=== PATIENT | female | born 1970 | race Caucasian/White ===

== ENCOUNTER 2018-04-26 05:03 | Emergency (ER) | payer BC ==
[2018-04-26] MEDS: SOD CHLORIDE 0.9% 1,000 ML IV ×2 (05:59→09:52)
[2018-04-26] MEDS: morphine 4 MG/ML VIAL IV (05:59)
[2018-04-26] MEDS: ONDANSETRON 4 MG INJ IV (05:59)
[2018-04-26 06:58] LABS: ADD MAN DIFF? NO
[2018-04-26] MEDS: LORAZEPAM 2 MG INJ IV (07:08)
[2018-04-26 07:11] LABS: ABNORMAL IP MESSAGE 1; BASOPHILS % 0.9 % (0.0-2.0); EOSINOPHILS # 0.1 10^3/ul (0.0-0.5); EOSINOPHILS % 2.9 % (0.0-7.0); HEMATOCRIT 34.5 % (37.0-47.0); HEMOGLOBIN 10.3 g/dl (12.0-16.0); LYMPHOCYTES # 1.5 10^3/ul (0.8-2.9); LYMPHOCYTES % 34.4 % (15.0-51.0); MEAN CORPUSCULAR HEMOGLOBIN 23.3 pg (29.0-33.0); MEAN CORPUSCULAR HGB CONC 29.9 g/dl (32.0-37.0); MEAN CORPUSCULAR VOLUME 77.9 fl (82.0-101.0); MEAN PLATELET VOLUME 11.6 fl (7.4-10.4); MONOCYTE # 0.5 10^3/ul (0.3-0.9); MONOCYTES % 10.7 % (0.0-11.0); NEUTROPHIL # 2.3 10^3/ul (1.6-7.5); NEUTROPHILS % 50.9 % (39.0-77.0); PLATELET COUNT 176 10^3/UL (140-415); RED BLOOD COUNT 4.43 10^6/ul (4.20-5.40); RED CELL DISTRIBUTION WIDTH 16.8 % (11.5-14.5)
[2018-04-26 07:11] LABS: WHITE BLOOD COUNT 4.5 10^3/ul (4.8-10.8)
[2018-04-26 07:29] LABS: POSITIVE DIFF @See below
[2018-04-26 07:30] LABS: ALANINE AMINOTRANSFERASE 68 IU/L (13-69); ALBUMIN 4.2 g/dl (3.3-4.9); ALBUMIN/GLOBULIN RATIO 1.55; ALKALINE PHOSPHATASE 74 IU/L (42-121); AMYLASE 61 U/L (11-123); ANION GAP 8 (5-13); ASPARTATE AMINO TRANSFERASE 71 IU/L (15-46); BILIRUBIN,INDIRECT 0.1 mg/dl (0-1.1); BILIRUBIN,TOTAL 0.1 mg/dl (0.2-1.3); BLOOD UREA NITROGEN 8 mg/dl (7-20); CALCIUM 8.5 mg/dl (8.4-10.2); CARBON DIOXIDE 24 mmol/L (21-31); CHLORIDE 109 mmol/L (97-110); CREATININE 0.56 mg/dl (0.44-1.00); Estimated GFR > 60 mL/min (>60); GLUCOSE 115 mg/dl (70-220); INR 0.89; LIPASE 70 U/L (23-300); POTASSIUM 3.8 mmol/L (3.5-5.1); PROTIME 12.1 Sec (11.9-14.9); PT RATIO 0.9; SODIUM 141 mmol/L (135-144); TOTAL PROTEIN 6.9 g/dl (6.1-8.1)
[2018-04-26 07:42] LABS: TROPONIN-I < 0.012 ng/ml (0.000-0.120)
== END 2018-04-26 11:01 | disposition home or self-care (01) ==
LOC: E/R 05:03
DX: M54.12 Radiculopathy, cervical region (principal); R53.1 Weakness; M79.601 Pain in right arm
CPT/HCPCS: 70450; 72125; 80053; 82150; 83690; 84484; 84703; 85025; 85610; 85730; 93005; 96374; 96375; 99285-25

== ENCOUNTER 2018-07-03 08:04 | Emergency (ER) | payer BC ==
[2018-07-03 08:36] LABS: URINE PH (Dip) POC 5.5 (5.0-8.5)
[2018-07-03 08:36] LABS: URINE BLOOD (Dip) POC 3+ (NEGATIVE); URINE GLUCOSE (Dip) POC Negative (NEGATIVE); URINE KETONES (Dip) POC Negative (NEGATIVE); URINE LEUKOCYTE EST (Dip) POC Negative (NEGATIVE); URINE NITRITE (Dip) POC Negative (NEGATIVE); URINE TOTAL PROTEIN POC 2+ (NEGATIVE)
[2018-07-03] MEDS: MECLIZINE 12.5 MG TAB PO (08:41)
[2018-07-03] MEDS: ACETAMINOPHEN 325 MG TAB PO (08:41)
== END 2018-07-03 09:15 | disposition home or self-care (01) ==
LOC: E/R 08:04
DX: R42 Dizziness and giddiness (principal); R40.2142 Coma scale, eyes open, spontaneous, at arrival to emergency department; R40.2252 Coma scale, best verbal response, oriented, at arrival to emergency department; R40.2362 Coma scale, best motor response, obeys commands, at arrival to emergency department
CPT/HCPCS: 81003; 81025; 82962; 99282